=== PATIENT | female | born 1945 | race Two or more races ===

== ENCOUNTER 2024-10-01 23:11 | Emergency (ER) | payer OTHER ==
[~2024-10-01] VITALS: Ht 162.6 cm; Wt 77.1 kg
[2024-10-01] MEDS ORDERED: ELIQUIS5 MG PO (23:44)
[2024-10-01] MEDS ORDERED: LISINOPRIL40 MG PO (23:44)
[2024-10-01] MEDS ORDERED: MONTELUKAST SOD10 MG PO (23:44)
[2024-10-01] MEDS ORDERED: METOPROLOL SUCC25 MG PO (23:44)
[2024-10-01] MEDS ORDERED: FUROSEMIDE40 MG PO (23:45)
[2024-10-02] MEDS ORDERED: ONDANSETRON HCL 2 MG/ML VIAL IV STA (02:10)
== END 2024-10-02 02:39 | disposition home or self-care (01) ==
LOC: ER 23:11
DX: K30 Functional dyspepsia (principal); Z88.0 Allergy status to penicillin; Z88.8 Allergy status to other drugs, medicaments and biological substances; I10 Essential (primary) hypertension
CPT/HCPCS: 93005; 96365; 99283; J2405